=== PATIENT | female | born 1995 | race Caucasian/White ===

== ENCOUNTER 2017-01-10 15:37 | Emergency (ER) | payer SELFPAY ==
[2017-01-10] MEDS ORDERED: Pepcid 20 MG VIAL IV ONE ×2 (15:45→15:47)
[2017-01-10] MEDS ORDERED: Sodium Chloride 0.9% 1000 ML 1,000 ML IV STA (15:45)
[2017-01-10] MEDS ORDERED: EPINEPHRINE 1:1000 1 ML AMP IM ONE (15:45)
[2017-01-10] MEDS ORDERED: solu-MEDROL 125 MG IV ONE (15:45)
[2017-01-10] MEDS ORDERED: BENADRYL 50 MG/ML IV ONE (15:45)
[2017-01-10] MEDS ORDERED: solu-MEDROL 125 MG ONE (15:47)
[2017-01-10] MEDS ORDERED: EPINEPHRINE 1:1000 1 ML AMP ONE (15:47)
[2017-01-10] MEDS ORDERED: BENADRYL 50 MG/ML ONE (15:47)
[2017-01-10] MEDS ORDERED: Sodium Chloride 0.9% 1000 ML 1,000 ML ONE (15:47)
--- NOTE | 2017-01-10 16:00 | ERPHSYRPT ---
- History of Present Illness Time Seen by Provider: 01/10/17 15:43 Source: patient, family Patient Subjective Stated Complaint: allergic reaction Triage Nursing Assessment: pt recently had allergy dose changing but got her shot today at 1300 and by 1500 started having itching, redness rash. took benadryl, singulair and alb inhaler with some relief. on arrival, hives and redness noted to back, neck, arms and legs. c/o itching. denies sob, sore throat or any resp distress at present. Physician History: CC: rash and itching Hx: 21 y/o pt of Dr Vilchis with hx of allergies. She took her allergy shot this afternoon at their office. She then began to have itching, wheezing, rash. Red hives and red rash. No throat or tongue swelling. No V/D. She used benadryl and nebs without relief so came to ER. Symptoms moderate. Timing/Duration: today Severity: moderate Allergies/Adverse Reactions: No Known Drug Allergies Allergy (Unverified 01/10/17 15:44) Home Medications: Albuterol 2.5 mg/3 ml Neb [Proventil 2.5 mg/3 ml Neb] 2.5 mg IH BID [History] Albuterol 8 gm Mdi Hfa [Ventolin Hfa MDI] 8 gm IH QIDPRN PRN 01/10/17 [ History] Fexofenadine HCl [Annia] 60 mg PO HS 01/10/17 [History] Montelukast Sodium [Singulair] 10 mg PO DAILY 01/10/17 [History] Hx Tetanus, Diphtheria Vaccination/Date Given: Yes Hx Influenza Vaccination/Date Given: Yes Hx Pneumococcal Vaccination/Date Given: No Immunizations Up to Date: Yes - Review of Systems Constitutional: No Fever, No Chills Eyes: No Symptoms Ears, Nose, & Throat: No Symptoms Respiratory: Wheezing Abdominal/Gastrointestinal: No Vomiting, No Diarrhea Skin: Pruritis, Rash Neurological: No Symptoms All Other Systems: Reviewed and Negative - Past Medical History Pertinent Past Medical History: Yes Respiratory History: Asthma - Past Surgical History Past Surgical History: Yes Other Surgical History: tonsils - Social History Smoking Status: Never smoker Exposure to second hand smoke: No Drug Use: none Patient Lives Alone: No - Female History Hx Last Menstrual Period: 1 week Hx Now: No - Nursing Vital Signs Nursing Vital Signs: Initial Vital Signs Temperature 98.3 F Temperature Source Oral Pulse Rate 100 Respiratory Rate 18 Blood Pressure [Right Arm] 129/70 Pain Intensity 0 - Physical Exam General Appearance: alert Eye Exam: PERRL/EOMI Ears, Nose, Throat Exam: normal ENT inspection, moist mucous membranes Neck Exam: normal inspection, non-tender, supple Respiratory Exam: wheezing (faint) Cardiovascular Exam: regular rate/rhythm, No murmur Gastrointestinal/Abdomen Exam: soft, No tenderness, No distention Back Exam: normal inspection Extremity Exam: normal range of motion Neurologic Exam: alert, oriented x 3, cooperative, sensation nml, No motor deficits Skin Exam: warm, dry, rash (red hives rash diffuse and generalized) SpO2 Interpretation: normal SpO2: 99 Oxygen Delivery: Room Air - Course Nursing assessment & vital signs reviewed: Yes Ordered Tests: Active Orders 24 hr Category Date Time Status Territory Sales Manager Medical STAT Care 01/10/17 15:45 Active IV Insertion STAT Care 01/10/17 15:45 Active Pulse Oximetry (ED) STAT Care 01/10/17 15:45 Active Medication Summary Discontinued Medications Generic Name Dose Route Start Last Admin Trade Name Freq PRN Reason Stop Dose Admin Diphenhydramine HCl 25 mg 01/10/17 15:45 01/10/17 15:53 Benadryl 50 Mg/Ml IV 01/10/17 15:46 25 mg STAT ONE Administration Diphenhydramine HCl Confirm 01/10/17 15:47 Benadryl 50 Mg/Ml Administered 01/10/17 15:48 Dose 50 mg .ROUTE .STK-MED ONE Epinephrine HCl 0.3 mg 01/10/17 15:45 01/10/17 15:51 Epinephrine 1:1000 1 Ml Amp IM 01/10/17 15:46 0.3 mg STAT ONE Administration Epinephrine HCl Confirm 01/10/17 15:47 Epinephrine 1:1000 1 Ml Amp Administered 01/10/17 15:48 Dose 1 mg .ROUTE .STK-MED ONE Famotidine 20 mg 01/10/17 15:45 01/10/17 15:53 Pepcid 20 Mg Vial IV 01/10/17 15:46 20 mg STAT ONE Administration Famotidine Confirm 01/10/17 15:47 Pepcid 20 Mg Vial Administered 01/10/17 15:48 Dose 20 mg IV .STK-MED ONE Sodium Chloride 1,000 mls @ 999 mls/hr 01/10/17 15:45 01/10/17 15:52 Sodium Chloride 0.9% 1000 Ml IV 01/10/17 16:45 999 mls/hr .Q1H1M STA Administration Sodium Chloride Confirm 01/10/17 15:47 Sodium Chloride 0.9% 1000 Ml Administered 01/10/17 15:48 Dose 1,000 mls @ ud .ROUTE .STK-MED ONE Methylprednisolone Sodium Succinate 125 mg 01/10/17 15:45 01/10/17 15:53 Solu-Medrol 125 Mg IV 01/10/17 15:46 125 mg STAT ONE Administration Methylprednisolone Sodium Succinate Confirm 01/10/17 15:47 Solu-Medrol 125 Mg Administered 01/10/17 15:48 Dose 125 mg .ROUTE .STK-MED ONE - Progress Progress Note: 01/10/17 16:03 IM epi, IV pepcid, benadryl, and solu medrol and IVF bolus given. 01/10/17 17:11 Much improved with epi and meds. Advised epinephrine pen, no more allergy shots until sees neurology manager, and benadryl and medrol. Will release with instructions. Counseled pt/family regarding: diagnosis, need for follow-up - Departure Time of Disposition: 17:12 Departure Disposition: Home Clinical Impression: Allergic reaction Qualifiers: Encounter type: initial encounter Qualified Code(s): T78.40XA - Allergy, unspecified, initial encounter Condition: Stable Critical Care Time: No Referrals: OCTAVIO MARTELL [Primary Care Provider] - DINAH VILCHIS [NON-STAFF PHY W/O PRIVILEGES] - Instructions: Adverse Drug Reaction -- Allergic Additional Instructions: No more allergic shots until you see neurology manager. Take benadryl every 6 hours. Rx epinephrine auto injector. Rx medrol dose pack. Return for problems or concerns. Stay with family tonite. Prescriptions: Methylprednisolone Packet [Medrol Dosepack] 4 mg PO UD #30 packet
[2017-01-10 17:31] VITALS: BP 127/64; PULSE 99; O2SAT 100
== END 2017-01-10 17:31 | disposition home or self-care (01) ==
LOC: ED 15:37
DX: T78.40XA Allergy, unspecified, initial encounter (principal)
CPT/HCPCS: 36000; 93041; 96360; 96372; 96374; 96375; 99284; J0171; J1200; J2930